=== PATIENT | female | born 1955 | race American Indian/Alaskan Native ===

== ENCOUNTER 2016-08-13 20:09 | Inpatient (IN) | payer MEDICARE ==
[2016-08-13] MEDS ORDERED: PEPCID IV ONE (21:11)
[2016-08-13] MEDS ORDERED: NACL 0.9% 1000 ML 1,000 ML IV ONE (21:11)
[2016-08-13] MEDS ORDERED: DILAUDID IV ONE ×2 (21:11→23:32)
[2016-08-13] MEDS ORDERED: NORMODYNE IV ONE (21:11)
[2016-08-13] MEDS ORDERED: ZOFRAN IV ONE (21:11)
[2016-08-13 21:30] LABS: Bilirubin,Urine NEG (Negative); Blood,Urine MOD (Negative); Ketones,Urine 80 mg/dL (Negative); Leukocyte Esterase,Urine MOD (Negative); Mucus,Urine FEW /HPF; Nitrite,Urine NEG (Negative); Urobilinogen,Urine < 2.0 mg/dL (<2.0)
[2016-08-13 21:32] LABS: Basophils % (Auto) 0.3 % (0.0-1.8); Eosinophils % (Auto) 0.1 % (0.0-4.3); Hematocrit 44.1 % (30.3-42.9); Hemoglobin 14.6 gm/dl (10.1-14.3); Mean Corpuscular HGB Conc 33 % (30-34); Mean Corpuscular Hemoglobin 28 pg (28-32); Mean Corpuscular Volume 86 fl (79-97); Platelet Count 213 K/mm3 (140-440); Red Blood Count 5.15 M/mm3 (3.65-5.03); Red Cell Distribution Width 15.2 % (13.2-15.2); White Blood Count 6.3 K/mm3 (4.5-11.0)
[2016-08-13 21:52] LABS: Alanine Aminotransferase 20 units/L (7-56); Albumin 4.6 g/dL (3.9-5); Albumin/Globulin Ratio 1.1 %; Alkaline Phosphatase 64 units/L (35-129); Anion Gap 24 mmol/L; Bilirubin,Total 0.7 mg/dL (0.1-1.2); Blood Urea Nitrogen 9 mg/dL (7-17); Calcium 9.8 mg/dL (8.4-10.2); Carbon Dioxide 21 mmol/L (22-30); Chloride 95.9 mmol/L (98-107); Glucose 108 mg/dL (65-100); Lipase 288 units/L (13-60); Sodium 138 mmol/L (137-145); Total Protein 8.7 g/dL (6.3-8.2)
[2016-08-13] MEDS ORDERED: APRESOLINE IV ONE (22:23)
--- NOTE | 2016-08-13 22:45 | Emergency Department Report ---
ED Abdominal Pain HPI - General Chief Complaint: Abdominal Pain Stated Complaint: CHEST PAIN/ABD PAIN Time Seen by Provider: 08/13/16 21:06 Source: patient, old records reviewed Mode of arrival: Ambulatory Limitations: No Limitations - History of Present Illness Initial Comments: 61-year-old female with a past medical history COPD, GERD, hypertension, and pancreatitis presents to the hospital complaining of abdominal pain since yesterday. Pain started in the epigastric area, described as burning and aching , rated 10/10 intensity, radiating to her back and chest. Pain is worse palpation. Patient developed vomiting this a.m. with by mouth intolerance. Patient not been able to tolerate anything by mouth including her medications and presents with elevated blood pressure. Similar symptoms in the past when she was admitted here 2013 for pancreatitis. Patient did have alcohol the day before symptom onset but denies daily alcohol use, history of alcohol withdrawal tremors or seizures. Previous abdominal surgery includes appendectomy and tubal ligation. Severity scale (0 -10): 10 - Related Data Home Medications Medication Instructions Recorded Confirmed Last Taken ALBUTEROL Inhaler [ProAir HFA 2 puff IH QID PRN 04/04/14 04/04/14 Unknown Inhaler] Cimetidine [Tagamet Hb] 200 mg PO DAILY 04/04/14 04/04/14 Unknown Fluticasone/Salmeterol [Advair 1 puff IH BID 04/04/14 04/04/14 Unknown Diskus 250-50 mcg] amLODIPine [Norvasc] 10 mg PO DAILY 04/04/14 04/04/14 04/04/14 Previous Rx's Medication Instructions Recorded Last Taken Type HYDROcodone/APAP 5-325 [[place] 1 each PO Q6HR PRN #30 tablet 04/11/14 Unknown Rx 5/325] Lisinopril [Zestril TAB] 5 mg PO QDAY #30 tablet 04/11/14 Unknown Rx Omeprazole [Prilosec] 40 mg PO DAILY #30 capsule. 04/11/14 Unknown Rx Simethicone [Mylanta Gas Maximum 125 mg PO TID PRN #30 tab.chew 04/11/14 Unknown Rx Strength] ALBUTEROL NEB's [Proventil 0.083% 2.5 mg IH Q4H PRN #25 neb 09/25/14 Unknown Rx NEBS] Albuterol Sulfate [Ventolin HFA] 2 puff IH Q4H PRN #1 hfa.aer.ad 09/25/14 Unknown Rx Azithromycin [Zithromax Z-ROSSI] 250 mg PO DAILY #6 tablet 09/25/14 Unknown Rx Fluticasone Propionate [Flonase] 100 mcg NS BID #120 spray.susp 09/25/14 Unknown Rx HYDROcodone/APAP 10-325 [[place] 1 each PO Q6HR PRN #16 tablet 09/25/14 Unknown Rx 10/325] Promethazine Dm [Phenergan Dm 5 ml PO Q6H PRN #120 ml 09/25/14 Unknown Rx 6.25/15 mg 5 ml] predniSONE [Deltasone] 20 mg PO BID #10 tab 09/25/14 Unknown Rx HYDROcodone/APAP 5-325 [[place] 1 each PO Q6HR PRN #14 tablet 11/03/14 Unknown Rx 5/325] Allergies Allergy/AdvReac Type Severity Reaction Status Date / Time Penicillins AdvReac Swelling Verified 11/03/14 10:42 ED Review of Systems ROS: Stated complaint: CHEST PAIN/ABD PAIN Other details as noted in HPI Comment: All other systems reviewed and negative Other: Constitutional: No fevers chills Eyes: No eye pain visual changes ENT: No ear pain or throat pain Neck: Denies pain Respiratory: Denies cough wheezing shortness of breath Cardiovascular: Denies chest pain, palpitations, syncope GI: As per HPI : Denies dysuria Musculoskeletal: Denies back pain Skin: Denies rash, lesions, erythema Neurologic: Denies headache, numbness, weakness Psychiatric: Denies suicidal ideation, hallucinations ED Past Medical Hx - Past Medical History Hx Hypertension: Yes Hx GERD: Yes Hx COPD: Yes Additional medical history: pancreatitis - Surgical History Hx Appendectomy: Yes Hx Breast Surgery: Yes (Right lump removal) Additional Surgical History: Tonsillectomy, tubaligation - Social History Smoking Status: Current Every Day Smoker Substance Use Type: Alcohol - Medications Home Medications: Home Medications Medication Instructions Recorded Confirmed Last Taken Type ALBUTEROL Inhaler [ProAir HFA 2 puff IH QID PRN 04/04/14 04/04/14 Unknown History Inhaler] Cimetidine [Tagamet Hb] 200 mg PO DAILY 04/04/14 04/04/14 Unknown History Fluticasone/Salmeterol [Advair 1 puff IH BID 04/04/14 04/04/14 Unknown History Diskus 250-50 mcg] amLODIPine [Norvasc] 10 mg PO DAILY 04/04/14 04/04/14 04/04/14 History HYDROcodone/APAP 5-325 [[place] 1 each PO Q6HR PRN #30 tablet 04/11/14 Unknown Rx 5/325] Lisinopril [Zestril TAB] 5 mg PO QDAY #30 tablet 04/11/14 Unknown Rx Omeprazole [Prilosec] 40 mg PO DAILY #30 capsule.dr 04/11/14 Unknown Rx Simethicone [Mylanta Gas Maximum 125 mg PO TID PRN #30 tab.chew 04/11/14 Unknown Rx Strength] ALBUTEROL NEB's [Proventil 0.083% 2.5 mg IH Q4H PRN #25 neb 09/25/14 Unknown Rx NEBS] Albuterol Sulfate [Ventolin HFA] 2 puff IH Q4H PRN #1 hfa.aer.ad 09/25/14 Unknown Rx Azithromycin [Zithromax Z-ROSSI] 250 mg PO DAILY #6 tablet 09/25/14 Unknown Rx Fluticasone Propionate [Flonase] 100 mcg NS BID #120 spray.susp 09/25/14 Unknown Rx HYDROcodone/APAP 10-325 [[place] 1 each PO Q6HR PRN #16 tablet 09/25/14 Unknown Rx 10/325] Promethazine Dm [Phenergan Dm 5 ml PO Q6H PRN #120 ml 09/25/14 Unknown Rx 6.25/15 mg 5 ml] predniSONE [Deltasone] 20 mg PO BID #10 tab 09/25/14 Unknown Rx HYDROcodone/APAP 5-325 [[place] 1 each PO Q6HR PRN #14 tablet 11/03/14 Unknown Rx 5/325] ED Physical Exam - General Limitations: No Limitations - Other Other exam information: General: No limitations, positives distress secondary to acute pain Head exam: Atraumatic, normocephalic Eyes exam: Normal appearance, nonicteric sclera ENT: Dry mucous membrane Neck exam: Normal inspection, full range of motion Respiratory exam: Clear to auscultation bilateral, no wheezes, rales, crackles Cardiovascular: Normal rate and rhythm, normal heart sounds Abdomen: Soft, nondistended, epigastric tenderness, normal bowel sounds, no rebound or guarding Extremity: Full range of motion normal inspection no deformity Back: Normal Inspection, full range of motion, no tenderness Neurologic: Alert, oriented x3, cranial nerves intact, no motor or sensory deficit Psychiatric: normal affect, normal mood Skin: Warm, dry, intact ED Course Vital Signs 08/13/16 08/13/16 08/13/16 20:29 22:17 22:57 Temperature 98.1 F Pulse Rate 105 H 89 95 H Respiratory 20 Rate Blood Pressure 189/118 188/109 Blood Pressure 189/118 176/100 [Left] O2 Sat by Pulse 100 Oximetry ED Medical Decision Making - Lab Data Result diagrams: 08/13/16 21:16 08/13/16 21:16 Lab Results 08/13/16 08/13/16 08/13/16 Range/Units 21:09 21:16 21:16 WBC 6.3 (4.5-11.0) K/mm3 RBC 5.15 H (3.65-5.03) M/mm3 Hgb 14.6 H (10.1-14.3) gm/dl Hct 44.1 H (30.3-42.9) % MCV 86 (79-97) fl MCH 28 (28-32) pg MCHC 33 (30-34) % RDW 15.2 (13.2-15.2) % Plt Count 213 (140-440) K/mm3 Lymph % (Auto) 21.7 (13.4-35.0) % [place] % (Auto) 7.8 H (0.0-7.3) % Eos % (Auto) 0.1 (0.0-4.3) % Baso % (Auto) 0.3 (0.0-1.8) % Lymph # 1.4 (1.2-5.4) K/mm3 [place] # 0.5 (0.0-0.8) K/mm3 Eos # 0.0 (0.0-0.4) K/mm3 Baso # 0.0 (0.0-0.1) K/mm3 Seg Neutrophils % 70.1 H (40.0-70.0) % Seg Neutrophils # 4.4 (1.8-7.7) K/mm3 Sodium 138 (137-145) mmol/L Potassium 3.0 L (3.6-5.0) mmol/L Chloride 95.9 L (98-107) mmol/L Carbon Dioxide 21 L (22-30) mmol/L Anion Gap 24 mmol/L BUN 9 (7-17) mg/dL Creatinine 0.6 L (0.7-1.2) mg/dL Estimated GFR > 60 ml/min BUN/Creatinine Ratio 15.00 % Glucose 108 H (65-100) mg/dL Calcium 9.8 (8.4-10.2) mg/dL Magnesium (1.7-2.3) mg/dL Total Bilirubin 0.7 (0.1-1.2) mg/dL AST 27 (5-40) units/L ALT 20 (7-56) units/L Alkaline Phosphatase 64 (35-129) units/L Troponin T < 0.010 (0.00-0.029) ng/mL Total Protein 8.7 H (6.3-8.2) g/dL Albumin 4.6 (3.9-5) g/dL Albumin/Globulin Ratio 1.1 % Lipase 288 H (13-60) units/L Urine Color Yellow (Yellow) Urine Turbidity Clear (Clear) Urine pH 5.0 (5.0-7.0) Ur Specific [place] 1.018 (1.003-1.030) Urine Protein 100 mg/dl (Negative) mg/dL Urine Glucose (UA) Neg (Negative) mg/dL Urine Ketones 80 (Negative) mg/dL Urine Blood Mod (Negative) Urine Nitrite Neg (Negative) Urine Bilirubin Neg (Negative) Urine Urobilinogen < 2.0 (<2.0) mg/dL Ur Leukocyte Esterase Mod (Negative) Urine WBC (Auto) 2.0 (0.0-6.0) /HPF Urine RBC (Auto) 3.0 (0.0-6.0) /HPF U Epithel Cells (Auto) 1.0 (0-13.0) /HPF Urine Mucus Few /HPF 08/13/16 Range/Units 21:16 WBC (4.5-11.0) K/mm3 RBC (3.65-5.03) M/mm3 Hgb (10.1-14.3) gm/dl Hct (30.3-42.9) % MCV (79-97) fl MCH (28-32) pg MCHC (30-34) % RDW (13.2-15.2) % Plt Count (140-440) K/mm3 Lymph % (Auto) (13.4-35.0) % Lawrence % (Auto) (0.0-7.3) % Eos % (Auto) (0.0-4.3) % Baso % (Auto) (0.0-1.8) % Lymph # (1.2-5.4) K/mm3 [place] # (0.0-0.8) K/mm3 Eos # (0.0-0.4) K/mm3 Baso # (0.0-0.1) K/mm3 Seg Neutrophils % (40.0-70.0) % Seg Neutrophils # (1.8-7.7) K/mm3 Sodium (137-145) mmol/L Potassium (3.6-5.0) mmol/L Chloride (98-107) mmol/L Carbon Dioxide (22-30) mmol/L Anion Gap mmol/L BUN (7-17) mg/dL Creatinine (0.7-1.2) mg/dL Estimated GFR ml/min BUN/Creatinine Ratio % Glucose (65-100) mg/dL Calcium (8.4-10.2) mg/dL Magnesium 2.2 (1.7-2.3) mg/dL Total Bilirubin (0.1-1.2) mg/dL AST (5-40) units/L ALT (7-56) units/L Alkaline Phosphatase (35-129) units/L Troponin T (0.00-0.029) ng/mL Total Protein (6.3-8.2) g/dL Albumin (3.9-5) g/dL Albumin/Globulin Ratio % Lipase (13-60) units/L Urine Color (Yellow) Urine Turbidity (Clear) Urine pH (5.0-7.0) Ur Specific [place] (1.003-1.030) Urine Protein (Negative) mg/dL Urine Glucose (UA) (Negative) mg/dL Urine Ketones (Negative) mg/dL Urine Blood (Negative) Urine Nitrite (Negative) Urine Bilirubin (Negative) Urine Urobilinogen (<2.0) mg/dL Ur Leukocyte Esterase (Negative) Urine WBC (Auto) (0.0-6.0) /HPF Urine RBC (Auto) (0.0-6.0) /HPF U Epithel Cells (Auto) (0-13.0) /HPF Urine Mucus /HPF - EKG Data -: EKG Interpreted by Me (sinus rhythm rate 99 PAC JUSTIN LVH) - EKG Data When compared to previous EKG there are: no significant change (compared to ) - Radiology Data Radiology results: report reviewed CT abdomen and pelvis IV contrast: Mild haziness adjacent to the head of the pancreas with prominence of the pancreatic duct. Could represent early acute pancreatitis. Please correlate with clinical lab values. 1.78 cm left adrenal mass. 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 Patient also need for the management of her hypertension. Potassium 30 mEq IV ordered for mild hypokalemia. Patient has normal magnesium level. - Differential Diagnosis pancreatitis, gastritis, cholecystitis, biliary colic Critical Care Time: No Critical care attestation.: If time is entered above; I have spent that time in minutes in the direct care of this critically ill patient, excluding procedure time. ED Disposition Clinical Impression: Acute pancreatitis, Uncontrolled hypertension, Hypokalemia Disposition: OP ADMITTED IP TO THIS HOSP Is pt being admited?: Yes Condition: Stable Instructions: Abdominal Pain (ED), Hypertension (ED) Time of Disposition: 23:21 (Dr Khan/hosp)
--- NOTE | 2016-08-13 23:06 | Cat Scan Report ---
FINAL REPORT EXAM: CT ABDOMEN PELVIS W CON HISTORY: epigastric pain hx of pancreatitis TECHNIQUE: CT abdomen and pelvis with intravenous contrast PRIORS: None. FINDINGS: No acute abnormality identified in the lung bases. No focal abnormality identified within the liver parenchyma. The spleen demonstrates normal size and attenuation. There is mild haziness adjacent to the head of the pancreas. There prominence of the pancreatic duct. No definitive pseudocyst or abscess identified. There is a left adrenal mass measuring 1.78 centimeters. Intermediate density. Recommend followup additional characterization with MRI The kidneys demonstrate symmetric contrast enhancement. No evidence of hydronephrosis. The adrenal glands are unremarkable Abdominal aorta is normal in caliber. No pathologically enlarged lymph nodes are identified. No signs of free fluid or free air No evidence of small bowel dilatation. Colon is nondistended. No pericolonic inflammatory change. Urinary bladder is unremarkable. IMPRESSION: Mild haziness adjacent to the head of the pancreas with prominence of the pancreatic duct. Could reflect early acute pancreatitis. Please correlate with clinical lab values 1.78 centimeter left adrenal mass. Possible lipid poor adenoma. This could be further characterized with MRI with adrenal protocol
--- NOTE | 2016-08-13 23:20 | History and Physical Report ---
History of Present Illness Date of examination: 08/13/16 Chief complaint: Abdominal pain History of present illness: 61-year-old -[place] female with past medical history significant for COPD, GERD, hypertension, pancreatitis presented to the emergency department complaining of abdominal pain that started yesterday afternoon. Pain started in the right upper quadrant radiating to the epigastric area and back, 8/ 10 in intensity. Patient has nausea and vomiting. Patient denied diarrhea, constipation. Patient had last pancreatitis in 2013. Patient has been drinking alcohol and last drink was 3 days ago. REVIEW OF SYSTEMS: GENERAL: no weight change, no fatigue, no fever HEAD: no head ache EYES: no blurry vision, no acute visual loss EARS: no hearing loss, no discharge, no earache NOSE: no stuffiness, no sneezing, no discharge MOUTH, THROAT AND NECK: no bleeding gums, no sore throat, no swollen neck CARDIAC: no palpitations, no dyspnea on exertion, no orthopnea, no PND, no edema , no chest pain RESPIRATORY: no shortness of breath, no wheeze, no cough, no sputum, no hemoptysis, no asthma GI: + decreased appetite, + nausea, + vomiting, no dysphagia, no diarrhea, no constipation, + abdominal pain URINARY: no change in frequency, no urgency, no polyuria, no hematuria, no incontinence MUSCULOSKELETAL: no muscle weakness, no pain, no joint stiffness NEUROLOGIC: no loss of sensation/numbness, no tingling, no tremors, no weakness/ paralysis HEMATOLOGIC: no anemia, no easy bruising SKIN: no rashes ENDOCRINE: no heat/cold intolerance, no polyuria, no polydipsia, no thyroid problems, no diabetes PSYCHIATRIC: no anxiety, no depression, no suicidal ideations Past History Past Medical History: GERD, hypertension, other (pancreatitis, depression) Past Surgical History: No surgical history Social history: smoking, alcohol abuse, full code. denies: IV drug use Family history: other (mother has history of lupus). denies: cancer Medications and Allergies Allergies Allergy/AdvReac Type Severity Reaction Status Date / Time Penicillins AdvReac Swelling Verified 11/03/14 10:42 Home Medications Medication Instructions Recorded Confirmed Last Taken Type ALBUTEROL Inhaler [ProAir HFA 2 puff IH QID PRN 04/04/14 04/04/14 Unknown History Inhaler] Cimetidine [Tagamet Hb] 200 mg PO DAILY 04/04/14 04/04/14 Unknown History Fluticasone/Salmeterol [Advair 1 puff IH BID 04/04/14 04/04/14 Unknown History Diskus 250-50 mcg] amLODIPine [Norvasc] 10 mg PO DAILY 04/04/14 04/04/14 04/04/14 History HYDROcodone/APAP 5-325 [[place] 1 each PO Q6HR PRN #30 tablet 04/11/14 Unknown Rx 5/325] Lisinopril [Zestril TAB] 5 mg PO QDAY #30 tablet 04/11/14 Unknown Rx Omeprazole [Prilosec] 40 mg PO DAILY #30 capsule.dr 04/11/14 Unknown Rx Simethicone [Mylanta Gas Maximum 125 mg PO TID PRN #30 tab.chew 04/11/14 Unknown Rx Strength] ALBUTEROL NEB's [Proventil 0.083% 2.5 mg IH Q4H PRN #25 neb 09/25/14 Unknown Rx NEBS] Albuterol Sulfate [Ventolin HFA] 2 puff IH Q4H PRN #1 hfa.aer.ad 09/25/14 Unknown Rx Azithromycin [Zithromax Z-ROSSI] 250 mg PO DAILY #6 tablet 09/25/14 Unknown Rx Fluticasone Propionate [Flonase] 100 mcg NS BID #120 spray.susp 09/25/14 Unknown Rx HYDROcodone/APAP 10-325 [[place] 1 each PO Q6HR PRN #16 tablet 09/25/14 Unknown Rx 10/325] Promethazine Dm [Phenergan Dm 5 ml PO Q6H PRN #120 ml 09/25/14 Unknown Rx 6.25/15 mg 5 ml] predniSONE [Deltasone] 20 mg PO BID #10 tab 09/25/14 Unknown Rx HYDROcodone/APAP 5-325 [[place] 1 each PO Q6HR PRN #14 tablet 11/03/14 Unknown Rx 5/325] Exam - Physical Exam Narrative exam: Not in cardiopulmonary distress. The patient appeared well nourished and normally developed. Vital signs as documented. Head exam is unremarkable. No scleral icterus . Neck is without jugular venous distension, thyromegaly, or carotid bruits. Lungs are clear to auscultation. Cardiac exam reveals regular rate and Rhythm. First and second heart sounds normal. No murmurs, rubs or gallops. Abdominal exam reveals abdominal tenderness, no rebound or guarding. Extremities are nonedematous and both femoral and pedal pulses are normal. HULL MOLDER: Alert and oriented 3. No focal weakness. - Constitutional Vitals: Temp Pulse Resp BP Pulse Ox 98.1 F 95 H 20 188/109 100 08/13/16 20:29 08/13/16 22:57 08/13/16 20:29 08/13/16 22:57 08/13/16 20:29 Results - Labs CBC & Chem 7: 08/13/16 21:16 08/13/16 21:16 Labs: Laboratory Last Values WBC 6.3 K/mm3 (4.5-11.0) 08/13/16 21:16 RBC 5.15 M/mm3 (3.65-5.03) H 08/13/16 21:16 Hgb 14.6 gm/dl (10.1-14.3) H 08/13/16 21:16 Hct 44.1 % (30.3-42.9) H 08/13/16 21:16 MCV 86 fl (79-97) 08/13/16 21:16 MCH 28 pg (28-32) 08/13/16 21:16 MCHC 33 % (30-34) 08/13/16 21:16 RDW 15.2 % (13.2-15.2) 08/13/16 21:16 Plt Count 213 K/mm3 (140-440) 08/13/16 21:16 Lymph % (Auto) 21.7 % (13.4-35.0) 08/13/16 21:16 [place] % (Auto) 7.8 % (0.0-7.3) H 08/13/16 21:16 Eos % (Auto) 0.1 % (0.0-4.3) 08/13/16 21:16 Baso % (Auto) 0.3 % (0.0-1.8) 08/13/16 21:16 Lymph # 1.4 K/mm3 (1.2-5.4) 08/13/16 21:16 [place] # 0.5 K/mm3 (0.0-0.8) 08/13/16 21:16 Eos # 0.0 K/mm3 (0.0-0.4) 08/13/16 21:16 Baso # 0.0 K/mm3 (0.0-0.1) 08/13/16 21:16 Seg Neutrophils % 70.1 % (40.0-70.0) H 08/13/16 21:16 Seg Neutrophils # 4.4 K/mm3 (1.8-7.7) 08/13/16 21:16 Sodium 138 mmol/L (137-145) 08/13/16 21:16 Potassium 3.0 mmol/L (3.6-5.0) L 08/13/16 21:16 Chloride 95.9 mmol/L (98-107) L 08/13/16 21:16 Carbon Dioxide 21 mmol/L (22-30) L 08/13/16 21:16 Anion Gap 24 mmol/L 08/13/16 21:16 BUN 9 mg/dL (7-17) 08/13/16 21:16 Creatinine 0.6 mg/dL (0.7-1.2) L 08/13/16 21:16 Estimated GFR > 60 ml/min 08/13/16 21:16 BUN/Creatinine Ratio 15.00 % 08/13/16 21:16 Glucose 108 mg/dL (65-100) H 08/13/16 21:16 Calcium 9.8 mg/dL (8.4-10.2) 08/13/16 21:16 Magnesium 2.2 mg/dL (1.7-2.3) 08/13/16 21:16 Total Bilirubin 0.7 mg/dL (0.1-1.2) 08/13/16 21:16 AST 27 units/L (5-40) 08/13/16 21:16 ALT 20 units/L (7-56) 08/13/16 21:16 Alkaline Phosphatase 64 units/L (35-129) 08/13/16 21:16 Troponin T < 0.010 ng/mL (0.00-0.029) 08/13/16 21:16 Total Protein 8.7 g/dL (6.3-8.2) H 08/13/16 21:16 Albumin 4.6 g/dL (3.9-5) 08/13/16 21:16 Albumin/Globulin Ratio 1.1 % 08/13/16 21:16 Lipase 288 units/L (13-60) H 08/13/16 21:16 Urine Color Yellow (Yellow) 08/13/16 21:09 Urine Turbidity Clear (Clear) 08/13/16 21:09 Urine pH 5.0 (5.0-7.0) 08/13/16 21:09 Ur Specific [place] 1.018 (1.003-1.030) 08/13/16 21:09 Urine Protein 100 mg/dl mg/dL (Negative) 08/13/16 21:09 Urine Glucose (UA) Neg mg/dL (Negative) 08/13/16 21:09 Urine Ketones 80 mg/dL (Negative) 08/13/16 21:09 Urine Blood Mod (Negative) 08/13/16 21:09 Urine Nitrite Neg (Negative) 08/13/16 21:09 Urine Bilirubin Neg (Negative) 08/13/16 21:09 Urine Urobilinogen < 2.0 mg/dL (<2.0) 08/13/16 21:09 Ur Leukocyte Esterase Mod (Negative) 08/13/16 21:09 Urine WBC (Auto) 2.0 /HPF (0.0-6.0) 08/13/16 21:09 Urine RBC (Auto) 3.0 /HPF (0.0-6.0) 08/13/16 21:09 U Epithel Cells (Auto) 1.0 /HPF (0-13.0) 08/13/16 21:09 Urine Mucus Few /HPF 08/13/16 21:09 Assessment and Plan Assessment and plan: Acute on chronic pancreatitis - CT suggestive of pancreatitis - Elevated lipase - We'll make her nothing by mouth -Pain control Uncontrolled hypertension - On IV hydralazine Hypokalemia - Repleted DVT prophylaxis - Lovenox Disposition -Admit to the floor Advance Directives: Yes VTE prophylaxis?: Chemical Plan of care discussed with patient/family: Yes
[2016-08-13] MEDS: KCL 10MEQ/100ML 10 MEQ/100 ML BAG IV SCH (23:29)
[2016-08-14] MEDS: MORPHINE IV PRN ×5 (01:56→19:50)
[2016-08-14] MEDS: ZOFRAN IV PRN ×2 (01:56→10:42)
[2016-08-14] MEDS: KCL 10MEQ/100ML 10 MEQ/100 ML BAG IV SCH ×2 (02:55→04:51)
[2016-08-14] MEDS: APRESOLINE IV PRN (06:15)
--- NOTE | 2016-08-14 08:28 | Admit Criteria Form ---
Admission Criteria Documentation: PANCREATITIS Clinical Indications for Admission to Inpatient Care (Place 'X' for any and all applicable criteria): Admission is indicated for ANY ONE of the following (1)(2)(3)(4): [X ]I. Acute pancreatitis[A] as indicated by 2 or more of the following: [X]a) Abdominal pain (eg, epigastric, left upper quadrant) [X ]b) Serum amylase or serum lipase greater than 3 times the upper limit of normal [ ]c) Characteristic findings from abdominal imaging (eg, pancreatic inflammation, pancreatic necrosis, peripancreatic fluid collection)[B] [ ]II. Pancreatitis (acute or chronic) requiring inpatient care as indicated by 1 or more of the following: [ ]a) Inability to maintain oral hydration Hypoxemia [ ]b) Evidence of infection (eg, fever, peripancreatic abscess) [ ]c) Severe pain requiring acute inpatient management [ ]d) Hemodynamic instability [ ]e) Hypoxemia [ ]f) Acute renal failure [ ]g) Severe electrolyte abnormalities Extended stay beyond goal length of stay may be needed for (1)(11) [ ]a) Severe acute pancreatitis (10)(19) [ ]b) Persistent symptoms, ascites, or pleural effusion [ ]c) Abdominal compartment syndrome (10) [ ]d) Late complications [ ]e) Acute renal failure (27) [ ]f) Gallstones in gallbladder The original [employer] content created by [employer] has been revised. The portions of the content which have been revised are identified through the use of italic text or in bold,and [facility] has neither reviewed nor approved the modified material.All other unmodified content is copyright [employer]. Please see references footnoted in the original [employer] edition 2016 Admission Criteria Met: Yes
[2016-08-14] MEDS: NACL 0.9% 1000 ML 1,000 ML IV SCH ×2 (10:41→22:07)
[2016-08-14] MEDS: LOVENOX SUB-Q SCH (10:44)
[2016-08-14 11:01] LABS: Basophils % (Auto) 0.4 % (0.0-1.8); Eosinophils % (Auto) 0.1 % (0.0-4.3); Hematocrit 42.7 % (30.3-42.9); Hemoglobin 14.2 gm/dl (10.1-14.3); Mean Corpuscular HGB Conc 33 % (30-34); Mean Corpuscular Hemoglobin 28 pg (28-32); Mean Corpuscular Volume 86 fl (79-97); Platelet Count 211 K/mm3 (140-440); Red Blood Count 4.99 M/mm3 (3.65-5.03); Red Cell Distribution Width 14.9 % (13.2-15.2); White Blood Count 7.1 K/mm3 (4.5-11.0)
[2016-08-14 11:15] LABS: Anion Gap 24 mmol/L; BUN/Creatinine Ratio 11.66; Blood Urea Nitrogen 7 mg/dL (7-17); Calcium 9.5 mg/dL (8.4-10.2); Carbon Dioxide 19 mmol/L (22-30); Chloride 96.8 mmol/L (98-107); Glucose 108 mg/dL (65-100); Potassium 3.5 mmol/L (3.6-5.0); Sodium 136 mmol/L (137-145)
[2016-08-14 11:41] LABS: Lipase 450 units/L (13-60)
--- NOTE | 2016-08-14 12:45 | Ultrasound Report ---
Complete abdominal ultrasound: Images of the liver and spleen are unremarkable. The pancreas head appears slightly prominent but unchanged since prior ultrasound in 2014. The gallbladder is normal and the CBD diameter is 2.3 mm. The right renal length is 11 cm and the left is 10.4 cm. Both kidneys appeared echogenically normal. The transverse diameter of the proximal abdominal aorta is 2.1 cm. Impression: Questionably prominent pancreatic head. This is unchanged 2014 and may have no significance.
--- NOTE | 2016-08-14 18:41 | Progress Note ---
Assessment and Plan Assessment and plan: --Acute pancreatitis probably alcohol related Nothing by mouth status, IV fluids, pain medications Check abdominal ultrasound Supportive care, GI evaluation if needed --Hypertension Moderate control, continue current antihypertensives and when necessary medications --Hypokalemia Replace protocol and monitor level --DVT prophylaxis with Lovenox --Ongoing tobacco use; smoking cessation counseling done Consult importance of smoking cessation, advised nicotine patch spent 10 minutes Counseling the patient --History of alcohol use Counseling done patient strongly advised to quit alcohol intake Verbalized understanding CODE STATUS full code Plan of care discussed with the patient as well as the family member History Interval history: Patient seen and evaluated in her room this morning medical records reviewed Patient complains of abdominal pain and mild nausea Admitted with acute pancreatitis, nothing by mouth status, symptoms minimally improved Alert awake oriented 3 in mild distress, vital signs reviewed Hospitalist Physical - Constitutional Vitals: Temp Pulse Resp BP Pulse Ox 98.6 F 108 H 20 150/105 99 08/14/16 16:00 08/14/16 17:49 08/14/16 16:00 08/14/16 16:00 08/14/16 16:42 General appearance: Present: mild distress, well-nourished - EENT Eyes: Present: PERRL, EOM intact - Neck Neck: Present: supple, normal ROM - Respiratory Respiratory effort: normal Respiratory: bilateral: diminished, negative: rales, rhonchi - Cardiovascular Rhythm: regular Heart Sounds: Present: S1 & S2 - Extremities Extremities: no ischemia, pulses intact, pulses symmetrical Peripheral Pulses: within normal limits - Abdominal General gastrointestinal: soft, tender (no guarding no rigidity), non-distended , normal bowel sounds - Integumentary Integumentary: Present: clear, warm - Psychiatric Psychiatric: appropriate mood/affect, cooperative - Neurologic Neurologic: CNII-XII intact, moves all extremities Results - Labs CBC & Chem 7: 08/14/16 10:35 08/14/16 10:35 Labs: Laboratory Last Values WBC 7.1 K/mm3 (4.5-11.0) 08/14/16 10:35 RBC 4.99 M/mm3 (3.65-5.03) 08/14/16 10:35 Hgb 14.2 gm/dl (10.1-14.3) 08/14/16 10:35 Hct 42.7 % (30.3-42.9) 08/14/16 10:35 MCV 86 fl (79-97) 08/14/16 10:35 MCH 28 pg (28-32) 08/14/16 10:35 MCHC 33 % (30-34) 08/14/16 10:35 RDW 14.9 % (13.2-15.2) 08/14/16 10:35 Plt Count 211 K/mm3 (140-440) 08/14/16 10:35 Lymph % (Auto) 22.0 % (13.4-35.0) 08/14/16 10:35 [place] % (Auto) 8.4 % (0.0-7.3) H 08/14/16 10:35 Eos % (Auto) 0.1 % (0.0-4.3) 08/14/16 10:35 Baso % (Auto) 0.4 % (0.0-1.8) 08/14/16 10:35 Lymph # 1.6 K/mm3 (1.2-5.4) 08/14/16 10:35 [place] # 0.6 K/mm3 (0.0-0.8) 08/14/16 10:35 Eos # 0.0 K/mm3 (0.0-0.4) 08/14/16 10:35 Baso # 0.0 K/mm3 (0.0-0.1) 08/14/16 10:35 Seg Neutrophils % 69.1 % (40.0-70.0) 08/14/16 10:35 Seg Neutrophils # 4.9 K/mm3 (1.8-7.7) 08/14/16 10:35 Sodium 136 mmol/L (137-145) L 08/14/16 10:35 Potassium 3.5 mmol/L (3.6-5.0) L 08/14/16 10:35 Chloride 96.8 mmol/L (98-107) L 08/14/16 10:35 Carbon Dioxide 19 mmol/L (22-30) L 08/14/16 10:35 Anion Gap 24 mmol/L 08/14/16 10:35 BUN 7 mg/dL (7-17) 08/14/16 10:35 Creatinine 0.6 mg/dL (0.7-1.2) L 08/14/16 10:35 Estimated GFR > 60 ml/min 08/14/16 10:35 BUN/Creatinine Ratio 11.66 % 08/14/16 10:35 Glucose 108 mg/dL (65-100) H 08/14/16 10:35 Calcium 9.5 mg/dL (8.4-10.2) 08/14/16 10:35 Magnesium 2.2 mg/dL (1.7-2.3) 08/13/16 21:16 Total Bilirubin 0.7 mg/dL (0.1-1.2) 08/13/16 21:16 AST 27 units/L (5-40) 08/13/16 21:16 ALT 20 units/L (7-56) 08/13/16 21:16 Alkaline Phosphatase 64 units/L (35-129) 08/13/16 21:16 Troponin T < 0.010 ng/mL (0.00-0.029) 08/14/16 02:15 Total Protein 8.7 g/dL (6.3-8.2) H 08/13/16 21:16 Albumin 4.6 g/dL (3.9-5) 08/13/16 21:16 Albumin/Globulin Ratio 1.1 % 08/13/16 21:16 Lipase 450 units/L (13-60) H 08/14/16 10:35 Urine Color Yellow (Yellow) 08/13/16 21:09 Urine Turbidity Clear (Clear) 08/13/16 21:09 Urine pH 5.0 (5.0-7.0) 08/13/16 21:09 Ur Specific [place] 1.018 (1.003-1.030) 08/13/16 21:09 Urine Protein 100 mg/dl mg/dL (Negative) 08/13/16 21:09 Urine Glucose (UA) Neg mg/dL (Negative) 08/13/16 21:09 Urine Ketones 80 mg/dL (Negative) 08/13/16 21:09 Urine Blood Mod (Negative) 08/13/16 21:09 Urine Nitrite Neg (Negative) 08/13/16 21:09 Urine Bilirubin Neg (Negative) 08/13/16 21:09 Urine Urobilinogen < 2.0 mg/dL (<2.0) 08/13/16 21:09 Ur Leukocyte Esterase Mod (Negative) 08/13/16 21:09 Urine WBC (Auto) 2.0 /HPF (0.0-6.0) 08/13/16 21:09 Urine RBC (Auto) 3.0 /HPF (0.0-6.0) 08/13/16 21:09 U Epithel Cells (Auto) 1.0 /HPF (0-13.0) 08/13/16 21:09 Urine Mucus Few /HPF 08/13/16 21:09
[2016-08-15] MEDS: MORPHINE IV PRN ×3 (00:55→22:50)
[2016-08-15 06:47] LABS: Alanine Aminotransferase 10 units/L (7-56); Albumin 3.3 g/dL (3.9-5); Albumin/Globulin Ratio 1.1 %; Alkaline Phosphatase 42 units/L (35-129); Amylase 146 units/L (27-131); Anion Gap 20 mmol/L; BUN/Creatinine Ratio 16.66; Bilirubin,Total 0.6 mg/dL (0.1-1.2); Blood Urea Nitrogen 10 mg/dL (7-17); Calcium 8.3 mg/dL (8.4-10.2); Carbon Dioxide 20 mmol/L (22-30); Chloride 102.5 mmol/L (98-107); Glucose 71 mg/dL (65-100); Potassium 3.3 mmol/L (3.6-5.0); Sodium 139 mmol/L (137-145); Total Protein 6.4 g/dL (6.3-8.2)
[2016-08-15 06:54] LABS: Bilirubin,Direct < 0.2 mg/dL (0-0.2); Bilirubin,Indirect 0.4 mg/dL
[2016-08-15 07:56] LABS: Lipase 135 units/L (13-60)
[2016-08-15] MEDS: NACL 0.9% 1000 ML 1,000 ML IV SCH ×2 (08:32→17:08)
[2016-08-15] MEDS ORDERED: K-DUR PO ONE (09:11)
--- NOTE | 2016-08-15 09:17 | Progress Note ---
Assessment and Plan Assessment and plan: --Hypokalemia Replace protocol and monitor level --Acute pancreatitis probably alcohol related pancreatic enzymes trending down, add clear liquids as tolerated abdominal ultrasound,prominant pancreatic head,old finding Supportive care, GI evaluation if needed --Hypertension Moderate control, continue current antihypertensives and when necessary medications --Ongoing tobacco use; smoking cessation counseling done Consult importance of smoking cessation, advised nicotine patch spent 10 minutes Counseling the patient --Mild protein calorie malnutrition, hypoalbuminemia Supportive care nutrition supplements --History of alcohol use Counseling done patient strongly advised to quit alcohol intake Verbalized understanding CODE STATUS full code Plan of care discussed with the patient as well as the family member --DVT prophylaxis with Lovenox History Interval history: Patient Seen and evaluated medical records reviewed Feels slightly better, no new events reported by the nursing staff Mild nausea no vomiting, abdominal pain slightly improved Alert awake oriented 3 not in acute distress vital signs stable Hospitalist Physical - Constitutional Vitals: Temp Pulse Resp BP Pulse Ox 98.2 F 88 20 153/86 97 08/15/16 06:30 08/15/16 06:30 08/15/16 06:30 08/15/16 06:30 08/15/16 06:30 General appearance: Present: no acute distress, well-nourished - EENT Eyes: Present: PERRL, EOM intact - Neck Neck: Present: supple, normal ROM - Respiratory Respiratory effort: normal Respiratory: bilateral: diminished, negative: rales, rhonchi, wheezing - Cardiovascular Rhythm: regular Heart Sounds: Present: S1 & S2 - Extremities Extremities: no ischemia, pulses intact, pulses symmetrical Peripheral Pulses: within normal limits - Abdominal General gastrointestinal: soft, non-tender, non-distended, normal bowel sounds - Integumentary Integumentary: Present: clear, warm - Psychiatric Psychiatric: appropriate mood/affect - Neurologic Neurologic: CNII-XII intact Results - Labs CBC & Chem 7: 08/14/16 10:35 08/15/16 05:08 Labs: Laboratory Last Values WBC 7.1 K/mm3 (4.5-11.0) 08/14/16 10:35 RBC 4.99 M/mm3 (3.65-5.03) 08/14/16 10:35 Hgb 14.2 gm/dl (10.1-14.3) 08/14/16 10:35 Hct 42.7 % (30.3-42.9) 08/14/16 10:35 MCV 86 fl (79-97) 08/14/16 10:35 MCH 28 pg (28-32) 08/14/16 10:35 MCHC 33 % (30-34) 08/14/16 10:35 RDW 14.9 % (13.2-15.2) 08/14/16 10:35 Plt Count 211 K/mm3 (140-440) 08/14/16 10:35 Lymph % (Auto) 22.0 % (13.4-35.0) 08/14/16 10:35 [place] % (Auto) 8.4 % (0.0-7.3) H 08/14/16 10:35 Eos % (Auto) 0.1 % (0.0-4.3) 08/14/16 10:35 Baso % (Auto) 0.4 % (0.0-1.8) 08/14/16 10:35 Lymph # 1.6 K/mm3 (1.2-5.4) 08/14/16 10:35 [place] # 0.6 K/mm3 (0.0-0.8) 08/14/16 10:35 Eos # 0.0 K/mm3 (0.0-0.4) 08/14/16 10:35 Baso # 0.0 K/mm3 (0.0-0.1) 08/14/16 10:35 Seg Neutrophils % 69.1 % (40.0-70.0) 08/14/16 10:35 Seg Neutrophils # 4.9 K/mm3 (1.8-7.7) 08/14/16 10:35 Sodium 139 mmol/L (137-145) 08/15/16 05:08 Potassium 3.3 mmol/L (3.6-5.0) L 08/15/16 05:08 Chloride 102.5 mmol/L (98-107) 08/15/16 05:08 Carbon Dioxide 20 mmol/L (22-30) L 08/15/16 05:08 Anion Gap 20 mmol/L 08/15/16 05:08 BUN 10 mg/dL (7-17) 08/15/16 05:08 Creatinine 0.6 mg/dL (0.7-1.2) L 08/15/16 05:08 Estimated GFR > 60 ml/min 08/15/16 05:08 BUN/Creatinine Ratio 16.66 % 08/15/16 05:08 Glucose 71 mg/dL (65-100) 08/15/16 05:08 Calcium 8.3 mg/dL (8.4-10.2) L 08/15/16 05:08 Magnesium 2.2 mg/dL (1.7-2.3) 08/13/16 21:16 Total Bilirubin 0.6 mg/dL (0.1-1.2) 08/15/16 05:08 Direct Bilirubin < 0.2 mg/dL (0-0.2) 08/15/16 05:08 Indirect Bilirubin 0.4 mg/dL 08/15/16 05:08 AST 15 units/L (5-40) 08/15/16 05:08 ALT 10 units/L (7-56) 08/15/16 05:08 Alkaline Phosphatase 42 units/L (35-129) 08/15/16 05:08 Troponin T < 0.010 ng/mL (0.00-0.029) 08/14/16 02:15 Total Protein 6.4 g/dL (6.3-8.2) D 08/15/16 05:08 Albumin 3.3 g/dL (3.9-5) L 08/15/16 05:08 Albumin/Globulin Ratio 1.1 % 08/15/16 05:08 Amylase 146 units/L (27-131) H 08/15/16 05:08 Lipase 135 units/L (13-60) H 08/15/16 05:08 Urine Color Yellow (Yellow) 08/13/16 21:09 Urine Turbidity Clear (Clear) 08/13/16 21:09 Urine pH 5.0 (5.0-7.0) 08/13/16 21:09 Ur Specific [place] 1.018 (1.003-1.030) 08/13/16 21:09 Urine Protein 100 mg/dl mg/dL (Negative) 08/13/16 21:09 Urine Glucose (UA) Neg mg/dL (Negative) 08/13/16 21:09 Urine Ketones 80 mg/dL (Negative) 08/13/16 21:09 Urine Blood Mod (Negative) 08/13/16 21:09 Urine Nitrite Neg (Negative) 08/13/16 21:09 Urine Bilirubin Neg (Negative) 08/13/16 21:09 Urine Urobilinogen < 2.0 mg/dL (<2.0) 08/13/16 21:09 Ur Leukocyte Esterase Mod (Negative) 08/13/16 21:09 Urine WBC (Auto) 2.0 /HPF (0.0-6.0) 08/13/16 21:09 Urine RBC (Auto) 3.0 /HPF (0.0-6.0) 08/13/16 21:09 U Epithel Cells (Auto) 1.0 /HPF (0-13.0) 08/13/16 21:09 Urine Mucus Few /HPF 08/13/16 21:09
[2016-08-15] MEDS: LOVENOX SUB-Q SCH (10:10)
[2016-08-15] MEDS ORDERED: PERCOCET 5/325 PO PRN (11:50)
[2016-08-15] MEDS: APRESOLINE IV PRN (17:13)
[2016-08-15] MEDS: ZOFRAN IV PRN (19:58)
[2016-08-16] MEDS: NACL 0.9% 1000 ML 1,000 ML IV SCH ×2 (02:15→22:38)
[2016-08-16] MEDS: MORPHINE IV PRN ×3 (05:11→22:36)
[2016-08-16 06:18] LABS: Anion Gap 18 mmol/L; Blood Urea Nitrogen 6 mg/dL (7-17); Calcium 8.5 mg/dL (8.4-10.2); Carbon Dioxide 21 mmol/L (22-30); Chloride 105.9 mmol/L (98-107); Glucose 87 mg/dL (65-100); Potassium 3.6 mmol/L (3.6-5.0); Sodium 141 mmol/L (137-145)
--- NOTE | 2016-08-16 08:07 | Progress Note ---
Assessment and Plan Assessment and plan: --Acute pancreatitis probably alcohol related pancreatic enzymes trending down, add clear liquids as tolerated abdominal ultrasound,prominant pancreatic head,old finding Supportive care, GI evaluation if needed --Hypokalemia, Corrected --Hypertension Moderate control, continue current antihypertensives and when necessary medications --Ongoing tobacco use; smoking cessation counseling done Consult importance of smoking cessation, advised nicotine patch spent 10 minutes Counseling the patient --Mild protein calorie malnutrition, hypoalbuminemia Supportive care nutrition supplements --History of alcohol use Counseling done patient strongly advised to quit alcohol intake Verbalized understanding CODE STATUS full code Plan of care discussed with the patient as well as the family member --DVT prophylaxis with Lovenox History Interval history: Patient seen and evaluated this morning medical records reviewed Tolerating clear liquids with admitted intermittent abdominal pain Lipase slightly improved remained still high Denies any nausea vomiting or diarrhea Alert awake oriented 3 not in acute distress vital signs reviewed Hospitalist Physical - Constitutional Vitals: Temp Pulse Resp BP Pulse Ox 98.7 F 79 18 167/93 98 08/16/16 06:31 08/16/16 06:31 08/16/16 06:31 08/16/16 06:31 08/16/16 06:31 General appearance: Present: no acute distress, well-nourished - EENT Eyes: Present: PERRL, EOM intact - Neck Neck: Present: normal ROM - Respiratory Respiratory effort: normal Respiratory: bilateral: diminished, negative: rales, rhonchi, wheezing - Cardiovascular Rhythm: regular Heart Sounds: Present: S1 & S2 - Extremities Extremities: no ischemia, pulses intact, pulses symmetrical Peripheral Pulses: within normal limits - Abdominal General gastrointestinal: soft, non-tender, non-distended, normal bowel sounds - Integumentary Integumentary: Present: clear, warm - Psychiatric Psychiatric: appropriate mood/affect, cooperative - Neurologic Neurologic: CNII-XII intact, moves all extremities Results - Labs CBC & Chem 7: 08/14/16 10:35 08/16/16 05:30 Labs: Laboratory Last Values WBC 7.1 K/mm3 (4.5-11.0) 08/14/16 10:35 RBC 4.99 M/mm3 (3.65-5.03) 08/14/16 10:35 Hgb 14.2 gm/dl (10.1-14.3) 08/14/16 10:35 Hct 42.7 % (30.3-42.9) 08/14/16 10:35 MCV 86 fl (79-97) 08/14/16 10:35 MCH 28 pg (28-32) 08/14/16 10:35 MCHC 33 % (30-34) 08/14/16 10:35 RDW 14.9 % (13.2-15.2) 08/14/16 10:35 Plt Count 211 K/mm3 (140-440) 08/14/16 10:35 Lymph % (Auto) 22.0 % (13.4-35.0) 08/14/16 10:35 [place] % (Auto) 8.4 % (0.0-7.3) H 08/14/16 10:35 Eos % (Auto) 0.1 % (0.0-4.3) 08/14/16 10:35 Baso % (Auto) 0.4 % (0.0-1.8) 08/14/16 10:35 Lymph # 1.6 K/mm3 (1.2-5.4) 08/14/16 10:35 [place] # 0.6 K/mm3 (0.0-0.8) 08/14/16 10:35 Eos # 0.0 K/mm3 (0.0-0.4) 08/14/16 10:35 Baso # 0.0 K/mm3 (0.0-0.1) 08/14/16 10:35 Seg Neutrophils % 69.1 % (40.0-70.0) 08/14/16 10:35 Seg Neutrophils # 4.9 K/mm3 (1.8-7.7) 08/14/16 10:35 Sodium 141 mmol/L (137-145) 08/16/16 05:30 Potassium 3.6 mmol/L (3.6-5.0) 08/16/16 05:30 Chloride 105.9 mmol/L (98-107) 08/16/16 05:30 Carbon Dioxide 21 mmol/L (22-30) L 08/16/16 05:30 Anion Gap 18 mmol/L 08/16/16 05:30 BUN 6 mg/dL (7-17) L 08/16/16 05:30 Creatinine 0.6 mg/dL (0.7-1.2) L 08/16/16 05:30 Estimated GFR > 60 ml/min 08/16/16 05:30 BUN/Creatinine Ratio 10.00 % 08/16/16 05:30 Glucose 87 mg/dL (65-100) 08/16/16 05:30 Calcium 8.5 mg/dL (8.4-10.2) 08/16/16 05:30 Magnesium 2.2 mg/dL (1.7-2.3) 08/13/16 21:16 Total Bilirubin 0.6 mg/dL (0.1-1.2) 08/15/16 05:08 Direct Bilirubin < 0.2 mg/dL (0-0.2) 08/15/16 05:08 Indirect Bilirubin 0.4 mg/dL 08/15/16 05:08 AST 15 units/L (5-40) 08/15/16 05:08 ALT 10 units/L (7-56) 08/15/16 05:08 Alkaline Phosphatase 42 units/L (35-129) 08/15/16 05:08 Troponin T < 0.010 ng/mL (0.00-0.029) 08/14/16 02:15 Total Protein 6.4 g/dL (6.3-8.2) D 08/15/16 05:08 Albumin 3.3 g/dL (3.9-5) L 08/15/16 05:08 Albumin/Globulin Ratio 1.1 % 08/15/16 05:08 Amylase 146 units/L (27-131) H 08/15/16 05:08 Lipase 153 units/L (13-60) H 08/16/16 05:30 Urine Color Yellow (Yellow) 08/13/16 21:09 Urine Turbidity Clear (Clear) 08/13/16 21:09 Urine pH 5.0 (5.0-7.0) 08/13/16 21:09 Ur Specific [place] 1.018 (1.003-1.030) 08/13/16 21:09 Urine Protein 100 mg/dl mg/dL (Negative) 08/13/16 21:09 Urine Glucose (UA) Neg mg/dL (Negative) 08/13/16 21:09 Urine Ketones 80 mg/dL (Negative) 08/13/16 21:09 Urine Blood Mod (Negative) 08/13/16 21:09 Urine Nitrite Neg (Negative) 08/13/16 21:09 Urine Bilirubin Neg (Negative) 08/13/16 21:09 Urine Urobilinogen < 2.0 mg/dL (<2.0) 08/13/16 21:09 Ur Leukocyte Esterase Mod (Negative) 08/13/16 21:09 Urine WBC (Auto) 2.0 /HPF (0.0-6.0) 08/13/16 21:09 Urine RBC (Auto) 3.0 /HPF (0.0-6.0) 08/13/16 21:09 U Epithel Cells (Auto) 1.0 /HPF (0-13.0) 08/13/16 21:09 Urine Mucus Few /HPF 08/13/16 21:09
[2016-08-16] MEDS: ZOFRAN IV PRN (09:00)
[2016-08-16] MEDS: APRESOLINE IV PRN ×2 (09:59→22:37)
[2016-08-16] MEDS: LOVENOX SUB-Q SCH (10:00)
[2016-08-17 06:43] LABS: Basophils % (Auto) 0.5 % (0.0-1.8); Eosinophils % (Auto) 1.2 % (0.0-4.3); Hemoglobin 11.8 gm/dl (10.1-14.3); Mean Corpuscular HGB Conc 33 % (30-34); Mean Corpuscular Hemoglobin 29 pg (28-32); Mean Corpuscular Volume 87 fl (79-97); Platelet Count 174 K/mm3 (140-440); Red Blood Count 4.14 M/mm3 (3.65-5.03); Red Cell Distribution Width 15.4 % (13.2-15.2); White Blood Count 3.6 K/mm3 (4.5-11.0)
[2016-08-17 07:00] LABS: Alanine Aminotransferase 9 units/L (7-56); Alkaline Phosphatase 37 units/L (35-129); Anion Gap 16 mmol/L; BUN/Creatinine Ratio 6.66; Bilirubin,Total 0.5 mg/dL (0.1-1.2); Blood Urea Nitrogen 4 mg/dL (7-17); Calcium 8.3 mg/dL (8.4-10.2); Carbon Dioxide 22 mmol/L (22-30); Chloride 106.5 mmol/L (98-107); Glucose 99 mg/dL (65-100); Potassium 3.7 mmol/L (3.6-5.0); Sodium 141 mmol/L (137-145); Total Protein 6.1 g/dL (6.3-8.2)
[2016-08-17 07:23] LABS: Bilirubin,Direct < 0.2 mg/dL (0-0.2); Bilirubin,Indirect 0.3 mg/dL
[2016-08-17 08:36] LABS: Lipase 96 units/L (13-60)
[2016-08-17] MEDS ORDERED: APRESOLINE IV ONE (09:00)
[2016-08-17] MEDS ORDERED: ZESTRIL PO SCH (10:00)
[2016-08-17] MEDS ORDERED: NORVASC PO SCH (10:00)
--- NOTE | 2016-08-17 10:10 | Discharge Summary ---
Providers - Providers Date of Admission: 08/13/16 23:20 Date of discharge: 08/17/16 Attending physician: CRISTIAN SAN Primary care physician: ULISSES AWAN Hospitalization Condition: Stable Disposition: DISCHARGED TO HOME OR SELFCARE Core Measure Documentation - Palliative Care Palliative Care/ Comfort Measures: Not Applicable - Core Measures Any of the following diagnoses?: none Exam - Constitutional Vitals: Temp Pulse Resp BP Pulse Ox 98.2 F 73 16 187/99 100 08/17/16 08:00 08/17/16 08:00 08/17/16 08:00 08/17/16 08:00 08/17/16 08:00 General appearance: Present: no acute distress, well-nourished - EENT Eyes: Present: PERRL, EOM intact - Neck Neck: Present: supple, normal ROM - Respiratory Respiratory effort: normal Respiratory: negative: rales, rhonchi, wheezing - Cardiovascular Rhythm: regular Heart Sounds: Present: S1 & S2 - Extremities Extremities: no ischemia, pulses intact, pulses symmetrical - Abdominal General gastrointestinal: Present: soft, non-tender, non-distended, normal bowel sounds - Integumentary Integumentary: Present: clear, warm - Musculoskeletal Musculoskeletal: strength equal bilaterally - Psychiatric Psychiatric: appropriate mood/affect, cooperative - Neurologic Neurologic: CNII-XII intact, moves all extremities Plan Activity: advance as tolerated Diet: low salt Special Instructions: smoking cessation, other (advised to quit alcohol intake) Additional Instructions: Patient strongly advised smoking cessation, and advised nicotine patch. Also advised to quit alcohol intake, recommend alcohol rehabilitation and to attend [employer] meetings Follow up with: ULISSES AWAN MD [Primary Care Provider] - 7 Days Prescriptions: amLODIPine [Norvasc] 10 mg PO DAILY #30 tablet Fluticasone/Salmeterol [Advair Diskus 250-50 mcg] 1 puff IH BID #1 blst.w.dev Folic Acid [Folvite] 1 mg PO QDAY #30 tablet HYDROcodone/APAP 5-325 [[place] 5-325 mg TAB] 1 each PO BID PRN #10 tablet PRN Reason: Pain Lisinopril [Zestril TAB] 10 mg PO QDAY #30 tablet Thiamine [Vitamin B-1] 100 mg PO QDAY #30 tablet
[2016-08-17] MEDS: LOVENOX SUB-Q SCH (10:12)
[2016-08-17] MEDS ORDERED: XANAX PO ONE (16:33)
[2016-08-17 17:52] VITALS: BP 152/91
[2016-08-17] MEDS ORDERED: APRESOLINE PO SCH (22:00)
== END 2016-08-17 18:20 | disposition home or self-care (01) | DRG 439 ==
LOC: ED 20:09 → 4A 23:20
PROVIDERS: ADMIT Internal Medicine; ATTEND Internal Medicine
DX: K85.20 Alcohol induced acute pancreatitis without necrosis or infection (principal); E44.1 Mild protein-calorie malnutrition; I10 Essential (primary) hypertension; E87.6 Hypokalemia; J44.9 Chronic obstructive pulmonary disease, unspecified; K21.9 Gastro-esophageal reflux disease without esophagitis; F17.200 Nicotine dependence, unspecified, uncomplicated; F32.9 Major depressive disorder, single episode, unspecified; F10.10 Alcohol abuse, uncomplicated; K86.1 Other chronic pancreatitis; Z68.24 Body mass index [BMI] 24.0-24.9, adult; Z88.0 Allergy status to penicillin; Z98.51 Tubal ligation status; Z71.6 Tobacco abuse counseling
CPT/HCPCS: 36415; 74177; 76700; 80048; 80053; 80074; 81001; 82150; 83690; 83735; 84484; 85025; 93005; 93010; 96361; 96374; 96375; 99406; J0360; J1170; J1650; J2270; J2405; J3480; J7030; Q9967

== ENCOUNTER 2017-02-19 06:58 | Outpatient (CLI) | payer MEDICARE ==
--- NOTE | 2017-02-19 09:05 | Magnetic Resonance Report ---
MRI LUMBAR SPINE WITHOUT CONTRAST HISTORY: Chronic lower back pain. TECHNIQUE: axial T1, T2. sagittal T1,T2, STIR. COMPARISON: none. FINDINGS: The conus terminates at the inferior endplate of L2 which is at the lower limits of normal for tethered cord. No secondary findings of tethered cord is identified. No signal abnormality or mass. The cauda equina is within normal limits. Normal height and alignment of the lumbar vertebra. Mild Modic degenerative endplate changes are noted at L3-4 and L4-5. No evidence for fracture or suspicious bony lesion. There is diffuse disc desiccation. Moderate disc space narrowing is noted at the lowest 3 levels. Mild to moderate diffuse facet arthropathy. L1-2: No significant abnormality. L2-3: No significant abnormality. L3-4: A mild circumferential bulging disc is identified. Mild facet arthropathy and hypertrophy ligamentum flavum. There is mild central canal narrowing measuring 9 mm in AP dimension. Right neural foraminal narrowing is estimated at 50% or greater. Left neural foraminal narrowing is estimated at 25%. L4-5: A mild circumferential bulging disc is identified. Mild facet arthropathy and hypertrophied ligamentum flavum. Mild central canal narrowing is evident measuring 9 mm in AP dimension. Bilateral neural foraminal narrowing is estimated at 50%. The left side is slightly more affected. L5-S1: Mild diffuse posterior bulging disc and mild facet arthropathy. No central canal narrowing. Bilateral neural foraminal narrowing is estimated at 50%. IMPRESSION: Lumbar spondylosis as described. There is mild central canal narrowing at L3-4 and L4-5. Mild to moderate multilevel neural foraminal narrowing. No evidence for acute injury.
== END 2017-02-19 06:59 | disposition home or self-care (01) ==
LOC: MRI 06:58
PROVIDERS: ATTEND Family Medicine
DX: M47.896 Other spondylosis, lumbar region (principal); M12.88 Other specific arthropathies, not elsewhere classified, other specified site; M24.28 Disorder of ligament, vertebrae
CPT/HCPCS: 72148